=== PATIENT | female | born 1945 ===

== ENCOUNTER 2024-01-31 12:27 | Emergency (ER) | payer MEDICARE ==
[~2024-01-31] VITALS: Ht 147.3 cm; Wt 45.4 kg
[2024-01-31] MEDS ORDERED: ZIPRASIDONE 20 MG VIAL IM ONE (12:53)
[2024-01-31] MEDS ORDERED: LORAZEPAM INJ 2 MG/ML VIAL ONE (12:54)
[2024-01-31 13:34] LABS: BASOPHILS # (AUTO) 0.1 (0.0-0.1); BASOPHILS % 1.5 % (0.0-1.0); EOSINOPHILS # (AUTO) 0.1 (0.0-0.4); EOSINOPHILS % 1.1 % (0.0-6.0); HEMATOCRIT 44.4 % (34.2-44.1); LYMPHOCYTES # (AUTO) 4.2 (1.0-3.2); LYMPHOCYTES % 56.3 % (18.0-39.1); MEAN CORPUSCULAR HEMOGLOBIN 29.8 pg (28-32); MEAN CORPUSCULAR HGB CONC 31.5 g/dL (31-35); MEAN CORPUSCULAR VOLUME 94.5 fL (81-99); MONOCYTES # (AUTO) 0.3 (0.2-0.8); MONOCYTES % 4.2 % (4.4-11.3); NEUTROPHILS # (AUTO) 2.7 (2.1-6.9); NEUTROPHILS % 36.8 % (38.7-80.0); PLATELET COUNT 132 x10e3/uL (140-360); RED CELL DISTRIBUTION WIDTH 12.4 % (11.7-14.4); WHITE BLOOD COUNT 7.42 x10e3/uL (4.8-10.8)
[2024-01-31 13:39] LABS: INR 0.96; PROTHROMBIN TIME 13.3 seconds (11.9-14.5)
[2024-01-31 13:40] LABS: PARTIAL THROMBOPLASTIN TIME 30.5 seconds (23.8-35.5)
[2024-01-31 13:47] LABS: ALBUMIN 4.5 g/dL (3.5-5.0); ALBUMIN/GLOBULIN RATIO 1.2 (0.8-2.0); ANION GAP 14.7 mmol/L (8-16); BILIRUBIN,TOTAL 0.8 mg/dL (0.2-1.2); CALCIUM 10.4 mg/dL (8.4-10.2); CREATININE, SERUM 1.41 mg/dL (0.57-1.11); MAGNESIUM 2.4 MG/DL (1.3-2.1); POTASSIUM 3.7 mmol/L (3.5-5.1); TOTAL PROTEIN 8.2 g/dL (6.5-8.1)
[2024-01-31 14:07] LABS: THYROID STIMULATING HORMONE 0.868 uIU/mL (0.350-4.940); TROPONIN I 0.001 ng/mL (0-0.300)
[2024-01-31 14:27] LABS: ACETAMINOPHEN < 3.0 ug/mL (10-30); ETHANOL < 10.0 mg/dL (0.0-10.0); SALICYLATE < 5.0 mg/dL (0-30)
[2024-01-31] MEDS: SODIUM CHLORIDE 0.9% 1000ML 1,000 ML IV STA (15:49)
[2024-01-31 19:15] VITALS: PULSE 58; RESP 17; TEMP 98; O2SAT 100
[2024-01-31] MEDS: LORAZEPAM INJ 2 MG/ML VIAL IM ONE (19:26)
[2024-01-31] MEDS: ZIPRASIDONE 20 MG VIAL IM STA (19:26)
== END 2024-01-31 19:27 | disposition home or self-care (01) ==
LOC: ER 13:31
DX: R41.82 Altered mental status, unspecified (principal); N28.9 Disorder of kidney and ureter, unspecified; E86.0 Dehydration; F20.9 Schizophrenia, unspecified
CPT/HCPCS: 36415; 70450; 71045; 80053; 80320; 80329 ×2; 83735; 84443; 84484; 85025; 85610; 85730; 99284; J2060; J3486; J7030